=== PATIENT | female | born 1995 | race Caucasian/White ===

== ENCOUNTER 2021-07-23 11:24 | Emergency (ER) | payer MEDICAID ==
[~2021-07-23] VITALS: Ht 165.1 cm; Wt 100.0 kg
[2021-07-23 12:00] LABS: BASOPHILS % 0.6 % (0.0-2.0); EOSINOPHILS % 0.5 % (0.0-5.0); HEMATOCRIT. 45.1 % (36.0-48.0); HEMOGLOBIN. 15.3 g/dL (12.0-16.0); LYMPHOCYTES % 10.2 % (20.0-50.0); MEAN CORPUSCULAR VOLUME 88.5 fL (81.0-99.0); MEAN PLATELET VOLUME 9.7 fl (7.4-10.4); MONOCYTES % 12.6 % (2.0-8.0); NEUTROPHILS % 76.1 % (40.0-76.0); PLATELET 210 x1000/uL (130-400); RED CELL DISTRIBUTION WIDTH 13.8 % (11.6-14.6)
[2021-07-23 12:07] LABS: CHLORIDE 100 mEq/L (98-107)
[2021-07-23 12:17] LABS: ETHANOL BLOOD < 10 mg/dL
[2021-07-23 12:22] LABS: HCG SCREEN NEGATIVE
[2021-07-23] MEDS ORDERED: KETOROLAC 30MG/ML VIAL IV STA (12:37)
[2021-07-23] MEDS ORDERED: SODIUM CHLORIDE 0.9% 1,000 ML IV ONE (12:45)
[2021-07-23] MEDS ORDERED: ONDANSETRON HCL 4MG/2ML INJ IV STA (13:26)
[2021-07-23] MEDS ORDERED: MORPHINE SULFATE 4 MG/ML CPJ (NOT FOR IM USE) IV STA (13:26)
[2021-07-23] MEDS ORDERED: IOHEXOL-350 100 ML BOTTLE ONE (14:34)
[2021-07-23 14:36] LABS: *AMPHETAMINES SCREEN URINE NEGATIVE (NEGATIVE); *BARBITURATES SCREEN URINE NEGATIVE (NEGATIVE)
[2021-07-23 14:37] LABS: *BENZODIAZEPINES SCREEN URINE NEGATIVE (NEGATIVE); *COCAINE SCREEN URINE NEGATIVE (NEGATIVE); METHADONE URINE SCREEN NEGATIVE (NEGATIVE); OPIATES URINE SCREEN NEGATIVE (NEGATIVE); PHENCYCLIDINE URINE SCREEN NEGATIVE (NEGATIVE)
[2021-07-23 14:38] LABS: CANNABINOID URINE SCREEN NEGATIVE (NEGATIVE)
[2021-07-23] MEDS ORDERED: IBUP-2030 MT (15:01)
[2021-07-23 15:11] VITALS: BP 145/65
== END 2021-07-23 15:11 | disposition home or self-care (01) ==
LOC: ER 11:24
DX: R07.89 Other chest pain (principal); I25.10 Atherosclerotic heart disease of native coronary artery without angina pectoris
CPT/HCPCS: 36415; 71045; 71275; 80053; 80305; 80320; 83880; 84484; 84703; 85025; 85379; 93005; 96361; 96374; 96375; 99285; J1885; J2270; J2405; J7030; Q9967; Z7610; G0480